=== PATIENT | male | born 1940 | race Caucasian/White ===

== ENCOUNTER 2016-08-28 18:46 | Inpatient (IN) | payer OTHER, MEDICARE ==
[~2016-08-28] VITALS: Ht 185.4 cm; Wt 63.1 kg
[2016-08-28 18:57] VITALS: BP 137/84
[2016-08-28] MEDS ORDERED: AMLODIPINE BESYL5 MG PO (19:18)
[2016-08-28] MEDS ORDERED: [UNRECOGNIZED DRUG - OTHER] PO (19:18)
[2016-08-28] MEDS ORDERED: ATORVASTATIN CA20 MG PO (19:19)
[2016-08-28] MEDS ORDERED: SINEMET1 TA2 PO ×2 (19:19→19:21)
[2016-08-28] MEDS ORDERED: UBIDECARENONE PO (19:23)
[2016-08-28] MEDS ORDERED: TAMSULOSIN HCL0.4 MG PO (19:26)
[2016-08-28] MEDS ORDERED: VITAMIN D-31000 UNIT PO (19:26)
[2016-08-28] MEDS ORDERED: VICODIN EQUIVAL1 TAB PO (19:27)
[2016-08-28] MEDS ORDERED: ACETAMINOPHEN500 MG PO (19:28)
[2016-08-28] MEDS ORDERED: MULTIPLE VITAMIN PO (19:29)
--- NOTE | 2016-08-28 20:03 | History & Physical Report ---
Admission Admit Date 08/28/16 History Chief Complaint Weakness, Falls History of Present Illness Patient is a 75 year old male with a past medical history of Essential Hypertension, Coronary Artery Disease, Hyperlipidemia, BPH, and Parkinson's Disease. He presents to [facility] as a transfer from [facility] ER. Pt was seen earlier today in the ER at [facility] for weakness and multiple falls over the last several days. Pt was found to have a UTI with sepsis and was trasferred to [facility] due to lack of hospital beds as the other facility. Pt states he has been feeling exceptionally weak and is unable to ambulate as he was able to a week ago. He denies fever. He denies dysuria, urinary urgency, and urinary frequency greater than normal. He further denies nausea, vomiting, and diarrhea. Pt has no other complaints or concerns at this time. Patient History 1. Essential hypertension 2. Coronary artery disease 3. Hyperlipidemia 4. BPH (benign prostatic hyperplasia) 5. Parkinsons disease Social History Pt does report current daily tobacco use but denies any hx of alcoholism or illicit drug use. Pt is a resident of an assisted living facility and uses an electric scooter at baseline. Family History Family history was reviewed; no changes noted. Medications and Allergies Medications Current Medications Sig/Michael Start time Last Medication Dose Route Stop Time Status Admin Carbidopa/Levodopa 1 TAB 1700 08/29 1700 AC PO Amlodipine Besylate 5 MG DAILY 08/29 0900 AC PO Aspirin 325 MG DAILY 08/29 0900 AC PO Ceftriaxone Sodium/ 50 ML DAILY 08/29 0900 AC Dextrose IV Pantoprazole Sodium 40 MG DAILY@0600 08/29 0600 UNV IV Acetaminophen 500 MG Q4H PRN 08/28 1999 UNV PO Acetaminophen/ 1 TAB Q6H PRN 08/28 1999 AC Hydrocodone Bitart PO Multivitamins 1 TAB DAILY 08/28 1949 UNVr PO Tamsulosin HCl 0.4 MG DAILY 08/28 1949 UNVr PO Atorvastatin Calcium 20 MG DAILY 08/28 1948 AC PO Carbidopa/Levodopa 1 TAB DAILY 08/28 1948 AC PO Sodium Chloride 1,000 ML NOW STA 08/28 1947 UNV IV 08/28 2046 Acetaminophen 650 MG Q6H PRN 08/28 1944 AC PO Docusate Sodium 250 MG BID PRN 08/28 1944 AC PO Morphine Sulfate 1 MG Q6H PRN 08/28 1944 UNV IV Naloxone HCl 0.4 MG PRN PRN 08/28 1944 UNV IV Ondansetron HCl 4 MG Q6H PRN 08/28 1944 UNV IV Sodium Chloride 1,000 ML ASDIRECTED 08/28 1944 UNV IV Zolpidem Tartrate 5 MG QHS PRN 08/28 1944 UNV PO Cholecalciferol 2,000 UNIT DAILY 08/28 0900 AC PO Allergies Coded Allergies: NKA (08/28/16) Review of Systems Other All systems reviewed and are negative except for what has already been mentioned in the HPI. Physical Exam Vital Signs / I&Os Vital Signs Date Time Temp Pulse Resp B/P Pulse O2 O2 Flow FiO2 Ox Delivery Rate 08/28 185 99.1 108 18 137/84 98 Room Air GENERAL: NAD; Pt laying comfortably in bed HEENT: AT/NC; PERRLA, EOMI; MM Moist CARDIAC: Tachycardic, No M/R/G appreciated PULM: Clear to auscultation bilaterally ABD: Soft, NT, ND, Positive BS in all quadrants; No hepatosplenomegaly appreciated EXT: No C/C/E in bilateral upper and lower extremity; No calve tenderness bilaterally SKIN: Warm, dry, pink, and intact NEURO: Alert and oriented x2; Following all commands PSYCH: Normal mood and affect LAB Results Microbiology Date/Time Procedure - Status Source Growth 08/28 1946 Blood Culture - ORD BLOOD 08/28 1946 Blood Culture - ORD BLOOD Imaging Chest x-ray from outside facility showed no acute process. Assessment and Plan Problem List 1. Sepsis Plan - Admit to acute care under inpatient status as patients length of stay is anticipated to be greater than 2 midnights - Bolus IV Normal Saline 1000 mL now - Start IV Normal Saline at 100 mL/hour for maintainence - Check Lacate now and then serially - Blood cultures x2 now - Check UA with culture and sensistivity - Start IV Rocephin 2 grams daily now - Telemetry monitoring - STAT CBC with diff and CMP now 2. UTI (urinary tract infection) Plan - See #1 - Check UA with culture and sensistivity now - Start IV Rocephin 2 grams daily now 3. Essential hypertension Plan - Restart pts home Amlodipine - Monitor BP closely 4. Coronary artery disease Plan - Continue home Aspirin - Continue home statin therapy 5. Hyperlipidemia Plan - Continue home Atorvastatin 6. BPH (benign prostatic hyperplasia) Plan - Continue home Flomax 7. Parkinsons disease Plan - Continue home regimen of Sinemet
[2016-08-28 22:41] VITALS: BP 117/58
[2016-08-29 02:54] VITALS: BP 128/67
[2016-08-29 07:06] VITALS: BP 109/60
--- NOTE | 2016-08-29 07:28 | Progress Note ---
Subjective General Patient is a 75 year old male with a past medical history of Essential Hypertension, Coronary Artery Disease, Hyperlipidemia, BPH, and Parkinson's Disease. He presents to [facility] as a transfer from [facility] ER. Pt was seen earlier today in the ER at [facility] for weakness and multiple falls over the last several days. Pt was found to have a UTI with sepsis and was trasferred to [facility] due to lack of hospital beds as the other facility. Pt states he has been feeling exceptionally weak and is unable to ambulate as he was able to a week ago. He denies fever. He denies dysuria, urinary urgency, and urinary frequency greater than normal. He further denies nausea, vomiting, and diarrhea. Patient this am he is feeling alright this am, no cp, sob, no new sores. States for months he has been with weak legs that just wont work well any longer and hx of multiple falls Physical Exam Vital Signs / I&Os Vital Signs Date Time Temp Pulse Resp B/P Pulse O2 O2 Flow FiO2 Ox Delivery Rate 08/29 0706 100.2 94 18 109/60 96 Room Air 08/29 0254 98.8 88 16 128/67 98 Room Air 08/28 2241 99.3 96 18 117/58 99 Room Air 08/28 1857 99.1 108 18 137/84 98 Room Air I&O 08/29 0000 08/28 1600 08/28 0800 Intake Total 0 Output Total 175 Balance -175 General Appearance Alert, Cooperative, doesn't recall name of his assisted living. HEENT Normal exam Lungs Clear to auscultation, Normal air movement Cardiovascular Regular rate and rhythm Abdomen Soft, No tenderness Extremities superfical sores on shins Neurological alert cooperative and talkative LAB Results Laboratory Tests 08/29 08/29 08/28 08/28 08/28 0400 0400 2204 [id number] Chemistry Plasma Sodium (136 - 145 mmol/L) 135 Plasma Potassium (3.5 - 5.1 mmol/L) 3.8 Plasma Chloride (98 - 107 mmol/L) 106 CO2 (Enzymatic) (21 - 32 mmol/L) 24 BUN (7 - 18 mg/dL) 15 Creatinine (0.6 - 1.3 mg/dL) 1.0 Est GFR ( Amer) (mL/min) >60 Est GFR (Non-Af Amer) (mL/min) >60 Glucose (70 - 110 mg/dL) 94 Lactic Acid (0.4 - 2.0 mmol/L) 1.0 Plasma Calcium (8.5 - 10.1 mg/dL) 7.8 Total Bilirubin (0.0 - 1.0 mg/dL) 0.4 AST (15 - 37 U/L) 16 ALT (12 - 78 U/L) 13 Alkaline Phosphatase (46 - 116 U/L) 63 Troponin (0.00 - 1.5 ng/mL) <0.05 C-Reactive Protein (0.0 - 0.9 mg/dL) 16.6 Total Protein (6.4 - 8.2 g/dL) 5.0 Albumin (3.3 - 5.0 g/dL) 2.5 Procalcitonin (0 - 0.5 ng/mL) 3.7 Hematology WBC (4.5 - 11.5 K/uL) 18.3 RBC (4.50 - 5.90 M/uL) 3.36 Hgb (13.5 - 17.5 gm/dL) 10.7 Hct (41.0 - 53.0 %) 30.4 MCV (80 - 100 fL) 91 MCH (26 - 34 pg) 32 RDW (11.6 - 14.8 %) 15.3 Gran % 86.4 Lymph % (Auto) (25 - 40 %) 11.5 [place] % (Auto) (3 - 14 %) 2.1 Plt Count, EDTA (150 - 400 K/uL) 145 PUBS MCHC (31 - 37 g/dL) 35 08/28 1955 Chemistry Plasma Sodium (136 - 145 mmol/L) 137 Plasma Potassium (3.5 - 5.1 mmol/L) 3.9 Plasma Chloride (98 - 107 mmol/L) 104 CO2 (Enzymatic) (21 - 32 mmol/L) 26 BUN (7 - 18 mg/dL) 19 Creatinine (0.6 - 1.3 mg/dL) 1.2 Est GFR ( Amer) (mL/min) >60 Est GFR (Non-Af Amer) (mL/min) >60 Glucose (70 - 110 mg/dL) 116 Plasma Calcium (8.5 - 10.1 mg/dL) 8.2 Plasma Magnesium (1.8 - 2.4 mg/dL) 1.7 Total Bilirubin (0.0 - 1.0 mg/dL) 0.5 AST (15 - 37 U/L) 18 ALT (12 - 78 U/L) 30 Alkaline Phosphatase (46 - 116 U/L) 72 Troponin (0.00 - 1.5 ng/mL) <0.05 Total Protein (6.4 - 8.2 g/dL) 5.5 Albumin (3.3 - 5.0 g/dL) 2.9 Hematology WBC (4.5 - 11.5 K/uL) 17.6 RBC (4.50 - 5.90 M/uL) 3.65 Hgb (13.5 - 17.5 gm/dL) 11.6 Hct (41.0 - 53.0 %) 33.3 MCV (80 - 100 fL) 91 MCH (26 - 34 pg) 32 RDW (11.6 - 14.8 %) 15.4 Gran % 88.4 Lymph % (Auto) (25 - 40 %) 7.9 [place] % (Auto) (3 - 14 %) 3.7 Plt Count, EDTA (150 - 400 K/uL) 176 PUBS MCHC (31 - 37 g/dL) 35 Microbiology Date/Time Procedure - Status Source Growth 08/28 1946 Blood Culture - ORD BLOOD 08/28 1946 Blood Culture - ORD BLOOD Assessment and Plan Problem List 1. Sepsis Plan Has elevation in lactic acid improving. high CRP will re check on labs tomorrow. 2. UTI (urinary tract infection) Plan On abx and seems to be improving 3. Essential hypertension Plan stable 4. Coronary artery disease Plan No cp,sob. 5. Parkinsons disease Plan stable 6. Leg weakness Plan Have PT eval
[2016-08-29 10:25] VITALS: BP 98/46
[2016-08-29 14:20] VITALS: BP 129/80
[2016-08-29 18:05] VITALS: BP 128/78
[2016-08-29 22:40] VITALS: BP 132/70
[2016-08-30 02:00] VITALS: BP 120/60
[2016-08-30 07:03] VITALS: BP 125/63
[2016-08-30 10:52] VITALS: BP 122/70
--- NOTE | 2016-08-30 10:52 | Progress Note ---
Subjective General Patient is a 75 year old male with a past medical history of Essential Hypertension, Coronary Artery Disease, Hyperlipidemia, BPH, and Parkinson's Disease. He presents to [facility] as a transfer from [facility] ER. Pt was seen earlier today in the ER at [facility] for weakness and multiple falls over the last several days. Pt was found to have a UTI with sepsis and was trasferred to [facility] due to lack of hospital beds as the other facility patient confused, oriented to person but not to time and place Follows instructions has urianry frequency No chest pain or shorntess of breath No gi complaints Physical Exam Vital Signs / I&Os Vital Signs Date Time Temp Pulse Resp B/P Pulse O2 O2 Flow FiO2 Ox Delivery Rate 08/30 0703 98.4 83 20 125/63 97 Room Air 08/30 0200 98.4 81 17 120/60 95 Room Air 08/29 2240 98.2 74 18 132/70 98 Room Air 08/29 1805 98.2 93 18 128/78 98 Room Air 08/29 1420 98.2 92 18 129/80 98 Room Air I&O 08/30 0000 08/29 1600 08/29 0800 Intake Total 1173 240 973 Output Total 875 250 300 Balance 298 -10 673 General Appearance Alert, Cooperative, No acute distress Lungs Clear to auscultation Cardiovascular Regular rate and rhythm, Normal S1 and S2, No murmurs, gallops, rubs Abdomen Soft, No tenderness, No guarding, No rebound, No hepatosplenomegaly Extremities No clubbing, No edema, Normal pulses Neurological bradykinesia with some stiffness of upper extermities LAB Results Laboratory Tests 08/30 08/30 08/29 0530 0530 1150 Chemistry Plasma Sodium (136 - 145 mmol/L) 141 Plasma Potassium (3.5 - 5.1 mmol/L) 3.3 Plasma Chloride (98 - 107 mmol/L) 110 CO2 (Enzymatic) (21 - 32 mmol/L) 24 BUN (7 - 18 mg/dL) 15 Creatinine (0.6 - 1.3 mg/dL) 1.0 Est GFR ( Amer) (mL/min) >60 Est GFR (Non-Af Amer) (mL/min) >60 Glucose (70 - 110 mg/dL) 84 Plasma Calcium (8.5 - 10.1 mg/dL) 7.6 Troponin (0.00 - 1.5 ng/mL) <0.05 C-Reactive Protein (0.0 - 0.9 mg/dL) 13.9 Procalcitonin (0 - 0.5 ng/mL) 3.1 Hematology WBC (4.5 - 11.5 K/uL) 12.3 RBC (4.50 - 5.90 M/uL) 3.09 Hgb (13.5 - 17.5 gm/dL) 9.6 Hct (41.0 - 53.0 %) 28.5 MCV (80 - 100 fL) 92 MCH (26 - 34 pg) 31 RDW (11.6 - 14.8 %) 15.9 Neut % (Auto) (50 - 75 %) 77 Lymph % (Auto) (25 - 40 %) 9 [place] % (Auto) (3 - 14 %) 4 Eos % (Auto) (0 - 4 %) 0 Baso % (Auto) (0 - 2 %) 0 Band Neutrophils % (0 - 8 %) 10 Metamyelocytes % (0 - 1 %) 0 Myelocytes (0 - 1 %) 0 Other Cell Type 0 Plt Count, EDTA (150 - 400 K/uL) 129 PUBS MCHC (31 - 37 g/dL) 34 Assessment and Plan Problem List 1. Sepsis Plan improving, procalcitonin levels decreasing. continue rocephin 2. UTI (urinary tract infection) Plan cultures done at [facility] show e.col--....will switch to po keflex 500 mg qid 3. Essential hypertension 4. Coronary artery disease Plan currently chest pain free 5. Hyperlipidemia 6. Parkinsons disease Plan stable. will have PT evaluate patient 7. BPH (benign prostatic hyperplasia) 8. Anemia Plan probalby secondary to iron deficiency and chronic disease 9. Thrombocytopenia Plan recheck platelets in am
--- NOTE | 2016-08-30 10:52 | Progress Note ---
Subjective General Patient is a 75 year old male with a past medical history of Essential Hypertension, Coronary Artery Disease, Hyperlipidemia, BPH, and Parkinson's Disease. He presents to [facility] as a transfer from [facility] ER. Pt was seen earlier today in the ER at [facility] for weakness and multiple falls over the last several days. Pt was found to have a UTI with sepsis and was trasferred to [facility] due to lack of hospital beds as the other facility patient confused, oriented to person but not to time and place Follows instructions has urianry frequency No chest pain or shorntess of breath No gi complaints Physical Exam Vital Signs / I&Os Vital Signs Date Time Temp Pulse Resp B/P Pulse O2 O2 Flow FiO2 Ox Delivery Rate 08/30 0703 98.4 83 20 125/63 97 Room Air 08/30 0200 98.4 81 17 120/60 95 Room Air 08/29 2240 98.2 74 18 132/70 98 Room Air 08/29 1805 98.2 93 18 128/78 98 Room Air 08/29 1420 98.2 92 18 129/80 98 Room Air I&O 08/30 0000 08/29 1600 08/29 0800 Intake Total 1173 240 973 Output Total 875 250 300 Balance 298 -10 673 General Appearance Alert, Cooperative, No acute distress Lungs Clear to auscultation Cardiovascular Regular rate and rhythm, Normal S1 and S2, No murmurs, gallops, rubs Abdomen Soft, No tenderness, No guarding, No rebound, No hepatosplenomegaly Extremities No clubbing, No edema, Normal pulses Neurological bradykinesia with some stiffness of upper extermities LAB Results Laboratory Tests 08/30 08/30 08/29 0530 0530 1150 Chemistry Plasma Sodium (136 - 145 mmol/L) 141 Plasma Potassium (3.5 - 5.1 mmol/L) 3.3 Plasma Chloride (98 - 107 mmol/L) 110 CO2 (Enzymatic) (21 - 32 mmol/L) 24 BUN (7 - 18 mg/dL) 15 Creatinine (0.6 - 1.3 mg/dL) 1.0 Est GFR ( Amer) (mL/min) >60 Est GFR (Non-Af Amer) (mL/min) >60 Glucose (70 - 110 mg/dL) 84 Plasma Calcium (8.5 - 10.1 mg/dL) 7.6 Troponin (0.00 - 1.5 ng/mL) <0.05 C-Reactive Protein (0.0 - 0.9 mg/dL) 13.9 Procalcitonin (0 - 0.5 ng/mL) 3.1 Hematology WBC (4.5 - 11.5 K/uL) 12.3 RBC (4.50 - 5.90 M/uL) 3.09 Hgb (13.5 - 17.5 gm/dL) 9.6 Hct (41.0 - 53.0 %) 28.5 MCV (80 - 100 fL) 92 MCH (26 - 34 pg) 31 RDW (11.6 - 14.8 %) 15.9 Neut % (Auto) (50 - 75 %) 77 Lymph % (Auto) (25 - 40 %) 9 [place] % (Auto) (3 - 14 %) 4 Eos % (Auto) (0 - 4 %) 0 Baso % (Auto) (0 - 2 %) 0 Band Neutrophils % (0 - 8 %) 10 Metamyelocytes % (0 - 1 %) 0 Myelocytes (0 - 1 %) 0 Other Cell Type 0 Plt Count, EDTA (150 - 400 K/uL) 129 PUBS MCHC (31 - 37 g/dL) 34 Assessment and Plan Problem List 1. Sepsis Plan improving, procalcitonin levels decreasing. continue rocephin 2. UTI (urinary tract infection) Plan cultures done at [facility] show e.col--....will switch to po keflex 500 mg qid 3. Essential hypertension 4. Coronary artery disease Plan currently chest pain free 5. Hyperlipidemia 6. Parkinsons disease Plan stable. will have PT evaluate patient 7. BPH (benign prostatic hyperplasia) 8. Anemia Plan probalby secondary to iron deficiency and chronic disease 9. Thrombocytopenia Plan recheck platelets in am
[2016-08-30 14:39] VITALS: BP 128/68
[2016-08-30 18:07] VITALS: BP 123/76
[2016-08-30 22:56] VITALS: BP 136/56
[2016-08-31 02:43] VITALS: BP 137/74
[2016-08-31 06:30] VITALS: BP 137/89
--- NOTE | 2016-08-31 08:08 | Progress Note ---
Subjective General Patient is a 75 year old male with a past medical history of Essential Hypertension, Coronary Artery Disease, Hyperlipidemia, BPH, and Parkinson's Disease. He presents to [facility] as a transfer from [facility] ER. Pt was seen earlier today in the ER at [facility] for weakness and multiple falls over the last several days. Pt was found to have a UTI with sepsis and was trasferred to [facility] due to lack of hospital beds as the other facility. Pt states he has been feeling exceptionally weak and is unable to ambulate as he was able to a week ago. He denies fever. He denies dysuria, urinary urgency, and urinary frequency greater than normal. He further denies nausea, vomiting, and diarrhea. Patient is doing better per nursing. Is a little unsteady on feet. Has hx of PT that he was getting at his assisted living facility. Overall, he feels he is at his baseline. Physical Exam Vital Signs / I&Os Vital Signs Date Time Temp Pulse Resp B/P Pulse O2 O2 Flow FiO2 Ox Delivery Rate 08/31 0630 98.1 73 16 137/89 97 Room Air 08/31 0243 98.2 77 20 137/74 94 Room Air 08/30 2256 97.5 77 20 136/56 97 Room Air 08/30 1807 98.4 88 20 123/76 97 Room Air 08/30 1439 98.2 84 20 128/68 98 Room Air 08/30 1052 98.8 91 20 122/70 96 Room Air I&O 08/31 0000 08/30 1600 08/30 0800 Intake Total 106 141 5177 Output Total 875 450 525 Balance -635 390 573 General Appearance Oriented X3, Cooperative HEENT Normal exam Lungs Clear to auscultation, Normal air movement Cardiovascular Regular rate and rhythm Abdomen Soft, No tenderness Extremities No edema LAB Results Laboratory Tests 08/31 0545 Chemistry Plasma Sodium (136 - 145 mmol/L) 141 Plasma Potassium (3.5 - 5.1 mmol/L) 3.4 Plasma Chloride (98 - 107 mmol/L) 109 CO2 (Enzymatic) (21 - 32 mmol/L) 23 BUN (7 - 18 mg/dL) 15 Creatinine (0.6 - 1.3 mg/dL) 1.0 Est GFR ( Amer) (mL/min) >60 Est GFR (Non-Af Amer) (mL/min) >60 Glucose (70 - 110 mg/dL) 90 Plasma Calcium (8.5 - 10.1 mg/dL) 7.9 Plasma Magnesium (1.8 - 2.4 mg/dL) 1.7 Hematology WBC (4.5 - 11.5 K/uL) 8.1 RBC (4.50 - 5.90 M/uL) 3.20 Hgb (13.5 - 17.5 gm/dL) 9.9 Hct (41.0 - 53.0 %) 29.7 MCV (80 - 100 fL) 93 MCH (26 - 34 pg) 31 RDW (11.6 - 14.8 %) 15.9 Neut % (Auto) (50 - 75 %) 83.9 Lymph % (Auto) (25 - 40 %) 7.3 [place] % (Auto) (3 - 14 %) 7.5 Eos % (Auto) (0 - 4 %) 1.2 Baso % (Auto) (0 - 2 %) 0.1 Plt Count, EDTA (150 - 400 K/uL) 143 PUBS MCHC (31 - 37 g/dL) 33 Assessment and Plan Problem List 1. Sepsis Plan Seems much improved at this time. 2. UTI (urinary tract infection) Plan Treat for 7 more days with keflex 3. Essential hypertension Plan Is doing better at this time. 4. Coronary artery disease Plan No cp,sob per patient. 5. Parkinsons disease Plan stable 6. Anemia Plan No issues at this time and stable
--- NOTE | 2016-08-31 08:08 | Progress Note ---
Subjective General Patient is a 75 year old male with a past medical history of Essential Hypertension, Coronary Artery Disease, Hyperlipidemia, BPH, and Parkinson's Disease. He presents to [facility] as a transfer from [facility] ER. Pt was seen earlier today in the ER at [facility] for weakness and multiple falls over the last several days. Pt was found to have a UTI with sepsis and was trasferred to [facility] due to lack of hospital beds as the other facility. Pt states he has been feeling exceptionally weak and is unable to ambulate as he was able to a week ago. He denies fever. He denies dysuria, urinary urgency, and urinary frequency greater than normal. He further denies nausea, vomiting, and diarrhea. Patient is doing better per nursing. Is a little unsteady on feet. Has hx of PT that he was getting at his assisted living facility. Overall, he feels he is at his baseline. Physical Exam Vital Signs / I&Os Vital Signs Date Time Temp Pulse Resp B/P Pulse O2 O2 Flow FiO2 Ox Delivery Rate 08/31 0630 98.1 73 16 137/89 97 Room Air 08/31 0243 98.2 77 20 137/74 94 Room Air 08/30 2256 97.5 77 20 136/56 97 Room Air 08/30 1807 98.4 88 20 123/76 97 Room Air 08/30 1439 98.2 84 20 128/68 98 Room Air 08/30 1052 98.8 91 20 122/70 96 Room Air I&O 08/31 0000 08/30 1600 08/30 0800 Intake Total 823 481 4459 Output Total 875 450 525 Balance -635 390 573 General Appearance Oriented X3, Cooperative HEENT Normal exam Lungs Clear to auscultation, Normal air movement Cardiovascular Regular rate and rhythm Abdomen Soft, No tenderness Extremities No edema LAB Results Laboratory Tests 08/31 0545 Chemistry Plasma Sodium (136 - 145 mmol/L) 141 Plasma Potassium (3.5 - 5.1 mmol/L) 3.4 Plasma Chloride (98 - 107 mmol/L) 109 CO2 (Enzymatic) (21 - 32 mmol/L) 23 BUN (7 - 18 mg/dL) 15 Creatinine (0.6 - 1.3 mg/dL) 1.0 Est GFR ( Amer) (mL/min) >60 Est GFR (Non-Af Amer) (mL/min) >60 Glucose (70 - 110 mg/dL) 90 Plasma Calcium (8.5 - 10.1 mg/dL) 7.9 Plasma Magnesium (1.8 - 2.4 mg/dL) 1.7 Hematology WBC (4.5 - 11.5 K/uL) 8.1 RBC (4.50 - 5.90 M/uL) 3.20 Hgb (13.5 - 17.5 gm/dL) 9.9 Hct (41.0 - 53.0 %) 29.7 MCV (80 - 100 fL) 93 MCH (26 - 34 pg) 31 RDW (11.6 - 14.8 %) 15.9 Neut % (Auto) (50 - 75 %) 83.9 Lymph % (Auto) (25 - 40 %) 7.3 [place] % (Auto) (3 - 14 %) 7.5 Eos % (Auto) (0 - 4 %) 1.2 Baso % (Auto) (0 - 2 %) 0.1 Plt Count, EDTA (150 - 400 K/uL) 143 PUBS MCHC (31 - 37 g/dL) 33 Assessment and Plan Problem List 1. Sepsis Plan Seems much improved at this time. 2. UTI (urinary tract infection) Plan Treat for 7 more days with keflex 3. Essential hypertension Plan Is doing better at this time. 4. Coronary artery disease Plan No cp,sob per patient. 5. Parkinsons disease Plan stable 6. Anemia Plan No issues at this time and stable
[2016-08-31] MEDS ORDERED: CEPHALEXIN500 MG PO (08:11)
--- NOTE | 2016-08-31 08:14 | Provider's Discharge Care Plan ---
Problem, Goal, Plan Problem List 1. Sepsis Instructions: Take meds as directed 2. UTI (urinary tract infection) Instructions: Take meds as directed, keflex new med x 10 days; otherwise resume his normal meds 3. Leg weakness Instructions: Continue with PT at facility was on this per Patient
[2016-08-31 11:03] VITALS: BP 136/86
--- NOTE | 2016-08-31 19:29 | DISCHARGE SUMMARY ---
ADMIT DATE: 08/28/2016 DISCHARGE DATE: 08/31/2016 ADMITTING DIAGNOSES: 1. Sepsis 2. Urinary tract infection 3. Hypertension 4. Heart disease 5. Hyperlipidemia 6. Benign prostatic hypertrophy 7. Parkinson disease 8. DISCHARGE DIAGNOSES: 1. Sepsis 2. Urinary tract infection 3. Hypertension 4. Heart disease 5. Hyperlipidemia 6. Benign prostatic hypertrophy 7. Parkinson disease BRIEF HISTORY: Please refer to admit dictation for details, but this is a 75- year-old male with high blood pressure, heart disease, hyperlipidemia, benign prostatic hypertrophy, and Parkinson's, who presented to [facility] Emergency Department, found to be in sepsis, was treated with IV fluids and then blood cultures checked, started on IV Rocephin. HOSPITAL COURSE: He had improvement over the next few days, switched over to oral antibiotics, and then was feeling much better, hoping to go home. He was no longer having any issues other than a little bit unsteady on his feet, which he said was chronic and he had been getting some help with this already at his assisted living facility. At the time of discharge, patient was feeling much better. At the time of discharge, patient was feeling much better. His vital signs were stable. His blood pressure was 136/86, temperature 98.0, his respirations 20, saturating 97% on room air. His lungs were clear. Heart was regular rate and rhythm. His white count was 8.1, hematocrit was 29.7. Chemistry: Potassium was 3.4, plasma chloride 109, calcium 7.9, and magnesium 1.7. Otherwise, his laboratories were within the normal range, and his procalcitonin had dropped from 13.9 to the day prior to discharge was at 3.1. The patient was feeling well and wanting to go home. DISCHARGE INSTRUCTIONS/MEDICATIONS: He was discharged to his assisted living facility and he had discharge medications that included his home medications ; Amlodipine 5 mg p.o. daily, aspirin 325 mg daily, atorvastatin 20 mg p.o. daily, carbidopa/levodopa 25/100 mg 1 p.o. b.i.d., Coenzyme Q10 300 mg p.o. daily, tamsulosin 0.4 mg p.o. daily, vitamin D 2000 international units daily, hydrocodone/acetaminophen 5/325 1 p.o. q.6 hours p.r.n. pain, acetaminophen 500 mg p.o. q.4 hours p.r.n. pain, max 3 g per day, multivitamin p.o. daily, and then he was to start taking cephalexin 500 mg p.o. four times a day for 10 days. The patient to have physical therapy as an outpatient for strengthening and decrease risk of falls as he has had a history of falls, and to follow up with his regular provider in the next 1-2 weeks.
== END 2016-08-31 16:24 | disposition home health service (06) | DRG 872 ==
LOC: ACUTE2 SRH 18:46
PROVIDERS: ADMIT Family Medicine
DX: A41.9 Sepsis, unspecified organism (principal); N39.0 Urinary tract infection, site not specified; I10 Essential (primary) hypertension; G20 Parkinson's disease; N40.0 Benign prostatic hyperplasia without lower urinary tract symptoms; E78.5 Hyperlipidemia, unspecified; I25.10 Atherosclerotic heart disease of native coronary artery without angina pectoris; Z72.0 Tobacco use
CPT/HCPCS: 83741; 83742; 83743; 83753; 83845; 85241; 90004; 90047; 90065; 90074; 90100; 90616; 91585; 91643; 92031; 92720; 93004; 95059